=== PATIENT | male | born 1985 | race African-American/Black ===

== ENCOUNTER 2018-01-01 19:41 | Emergency (ER) | payer SELFPAY ==
--- NOTE | 2018-01-01 20:17 | ER Document Report ---
ED Medical Screen (RME) - General Chief Complaint: Laceration Stated Complaint: RIGHT HAND LACERATION Time Seen by Provider: 01/01/18 20:15 Mode of Arrival: Ambulatory Information source: Patient TRAVEL OUTSIDE OF THE [place] 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 Tet- UTD - Related Data Allergies/Adverse Reactions: peaches Allergy (Uncoded 01/01/18 19:42) Past Medical History - Social History Chew tobacco use (# tins/day): No Frequency of alcohol use: Social Drug Abuse: None Renal/ Medical History: Denies: Hx Peritoneal Dialysis - Immunizations Hx Diphtheria, Pertussis, Tetanus Vaccination: No Physical Exam - Vital signs Vitals: Temp Pulse Resp BP Pulse Ox 98.6 F 60 16 122/68 97 01/01/18 20:03 01/01/18 20:03 01/01/18 20:03 01/01/18 20:03 01/01/18 20:03 Course - Vital Signs Vital signs: Temp Pulse Resp BP Pulse Ox 98.6 F 60 16 122/68 97 01/01/18 20:03 01/01/18 20:03 01/01/18 20:03 01/01/18 20:03 01/01/18 20:03
[2018-01-01] MEDS ORDERED: LIDOCAINE 1% INJ-PF (10 MG/ML) 30 ML SDV INJ ONE (22:27)
--- NOTE | 2018-01-01 22:29 | ER Document Report ---
ED Wound - General Chief Complaint: Laceration Stated Complaint: RIGHT HAND LACERATION Time Seen by Provider: 01/01/18 20:15 Mode of Arrival: Ambulatory Notes: Patient is a 32-year-old male comes emergency department for chief complaint of laceration to his right wrist. Patient states that he accidentally locked himself out of the house, states he hit his window with a brick to break it and get an, states that when he hit the window a shard of glass cut him in the wrist. He is right-handed. He denies SI or HI, denies that he was trying to hurt himself. He is up-to-date on tetanus within 5 years. TRAVEL OUTSIDE OF THE [place] IN LAST 30 DAYS: No - Related Data Allergies/Adverse Reactions: peaches Allergy (Uncoded 01/01/18 19:42) Past Medical History - General Information source: Patient - Social History Smoking Status: Current Every Day Smoker Chew tobacco use (# tins/day): No Frequency of alcohol use: Social Drug Abuse: None Lives with: Family Family History: Reviewed & Not Pertinent Patient has suicidal ideation: No Patient has homicidal ideation: No - Medical History Medical History: Negative Renal/ Medical History: Denies: Hx Peritoneal Dialysis Surgical Hx: Negative - Immunizations Hx Diphtheria, Pertussis, Tetanus Vaccination: No Review of Systems - Review of Systems Constitutional: No symptoms reported EENT: No symptoms reported Cardiovascular: No symptoms reported Respiratory: No symptoms reported Gastrointestinal: No symptoms reported Genitourinary: No symptoms reported Male Genitourinary: No symptoms reported Musculoskeletal: See HPI Skin: See HPI Hematologic/Lymphatic: No symptoms reported Neurological/Psychological: No symptoms reported Physical Exam - Vital signs Vitals: Temp Pulse Resp BP Pulse Ox 98.6 F 60 16 122/68 97 01/01/18 20:03 01/01/18 20:03 01/01/18 20:03 01/01/18 20:03 01/01/18 20:03 Interpretation: Normal - General General appearance: Appears well, Alert In distress: None - HEENT Head: Normocephalic, Atraumatic Eyes: Normal Pupils: PERRL - Respiratory Respiratory status: No respiratory distress Chest status: Nontender Breath sounds: Normal Chest palpation: Normal - Cardiovascular Rhythm: Regular Heart sounds: Normal auscultation Murmur: No - Abdominal Inspection: Normal Distension: No distension Bowel sounds: Normal Tenderness: Nontender Organomegaly: No organomegaly - Back Back: Normal, Nontender - Extremities General upper extremity: Other - Linear laceration over the volar aspect of the right forearm, horizontal, into the subcutaneous tissue. No significant bleeding, no evidence of laceration or tendon injury, normal wrist, elbow exam, normal sensation, capillary refill, range of motion of the fingers. General lower extremity: Normal inspection, Nontender, Normal color, Normal ROM , Normal temperature, Normal weight bearing - Neurological Neuro grossly intact: Yes Cognition: Normal Orientation: AAOx4 Miah Coma Scale Eye Opening: Spontaneous Miah Coma Scale Verbal: Oriented [place] Coma Scale Motor: Obeys Commands [place] Coma Scale Total: 15 Speech: Normal Motor strength normal: LUE, RUE, LLE, RLE Sensory: Normal - Psychological Associated symptoms: Normal affect, Normal mood - Skin Skin Temperature: Warm Skin Moisture: Dry Skin Color: Normal Course - Re-evaluation Re-evalutation: Wound explored carefully, no evidence of tendon or nerve injury, no large vessel injury. Patient denying any suicidal or homicidal ideation, I suspect because patient is right-handed he is giving me any accurate history. Does appear to be cut with glass that does not appear to be linear. More likely accidental injury. Wound cleaned, repaired, discussed wound care, follow-up, return precautions. Patient states understanding and agreement. - Vital Signs Vital signs: Temp Pulse Resp BP Pulse Ox 97.7 F 58 L 16 121/63 96 01/02/18 00:47 01/02/18 00:47 01/01/18 20:03 01/02/18 00:47 01/02/18 00:47 Procedures - Laceration/Wound Repair Right wrist Wound length (cm): 3 Wound's Depth, Shape: Irregular Laceration pre-procedure: Sterile PPE donned, Sterile drapes applied, Shur- Clens applied - Surgical cleanser Anesthetic type: 1% Lidocaine Volume Anesthetic (mLs): 3 Wound explored: Clean, No foreign body removed Irrigated w/ Saline (mLs): 40 Wound Repaired With: Sutures Suture Size/Type: 4:0, Nylon Number of Sutures: 5 Layer Closure?: Yes Deep Layer Suture Size/Type: 5:0, Other - Vicryl Number Deep Layer Sutures: 2 Post-procedure wound care: Sterile dressing applied Post-procedure NV exam normal: Yes Complications: No Discharge - Discharge Clinical Impression: Laceration of wrist Qualifiers: Encounter type: initial encounter Laterality: right Qualified Code(s): S61.511A - Laceration without foreign body of right wrist, initial encounter Condition: Stable Disposition: HOME, SELF-CARE Additional Instructions: The sutures on top need to be removed in 7-10 days at a medical facility. The sutures underneath will dissolve on their own. Keep clean, clean with soap and water, dab dry, avoid soaking, you can apply thin film of antibiotic ointment. Return immediately for any concerning symptoms including developing redness, discolored drainage, fever, severe swelling, or any other concerning symptoms. Forms: Return to Work
[2018-01-02 00:48] VITALS: BP 121/63
== END 2018-01-02 01:04 | disposition home or self-care (01) ==
LOC: ER 19:41
PROC: 0HQDXZZ Repair Right Lower Arm Skin, External Approach (ICD-10-PCS; principal; 2018-01-01)
DX: S61.511A Laceration without foreign body of right wrist, initial encounter (principal); W25.XXXA Contact with sharp glass, initial encounter; F17.200 Nicotine dependence, unspecified, uncomplicated
CPT/HCPCS: 99283

== ENCOUNTER 2018-01-07 09:25 | Emergency (ER) | payer SELFPAY ==
--- NOTE | 2018-01-07 10:30 | ER Document Report ---
HPI - HPI Patient complains to provider of: Suture removal Onset: Other - 6 days Pain Level: Denies Context: Patient states that he is here for suture removal to laceration to the right wrist. Patient does state that he did have a suture that popped. Patient with 4 intact sutures. Patient does report serous drainage from the laceration. Exacerbated by: Denies Relieved by: Denies Similar symptoms previously: No Recently seen / treated by doctor: No - ROS ROS below otherwise negative: Yes Systems Reviewed and Negative: Yes All other systems reviewed and negative - CONSTITUTIONAL Constitutional: DENIES: Fever, Chills - REPRODUCTIVE Reproductive: DENIES: : - DERM Skin Problems: Laceration Past Medical History - General Information source: Patient - Social History Smoking Status: Current Every Day Smoker Smoking Education Provided: Yes Frequency of alcohol use: Social Drug Abuse: None Occupation: [employer] Lives with: Family Family History: Reviewed & Not Pertinent Patient has suicidal ideation: No Patient has homicidal ideation: No - Medical History Medical History: Negative Renal/ Medical History: Denies: Hx Peritoneal Dialysis Surgical Hx: Negative - Immunizations Hx Diphtheria, Pertussis, Tetanus Vaccination: No Vertical Provider Document - CONSTITUTIONAL Agree With Documented VS: Yes Exam Limitations: No Limitations General Appearance: WD/WN, No Apparent Distress - INFECTION CONTROL TRAVEL OUTSIDE OF THE [place] IN LAST 30 DAYS: No - HEENT HEENT: Atraumatic, Normocephalic - NECK Neck: Normal Inspection - RESPIRATORY Respiratory: No Respiratory Distress O2 Sat by Pulse Oximetry: 97 - CARDIOVASCULAR Pulses: Normal: Radial - MUSCULOSKELETAL/EXTREMETIES Musculoskeletal/Extremeties: MAEW - NEURO Level of Consciousness: Awake, Alert, Appropriate Motor/Sensory: No Motor Deficit - DERM Integumentary: Warm, Dry, Laceration - Patient with laceration to the volar aspect of right wrist. Patient with 4 intact sutures with one central suture that had popped. Patient does have very minimal serous drainage from laceration. Course - Re-evaluation Re-evalutation: 01/07/18 Patient initially was advised to return in 7-10 days for suture removal. Patient presents 6 days after sutures were placed. Given the fact that the suture has popped and the wound has already started to do his,Patient was advised to return in 6 additional days to have the sutures removed or to return sooner for any worsening symptoms. Patient will be placed in a splint to prevent extension and hyperextension of the wrist that will put strain on the laceration. Patient states that he has been continuing to work despite his sutured laceration. - Vital Signs Vital signs: Temp Pulse Resp BP Pulse Ox 98.5 F 88 16 121/98 H 97 01/07/18 09:31 01/07/18 09:31 01/07/18 09:31 01/07/18 09:31 01/07/18 09:31 Procedures - Immobilization Right Wrist Pre-Proc Neuro Vasc Exam: Normal Immobilizer type: Cock-up Performed by: PCT Post-Proc Neuro Vasc Exam: Normal Alignment checked and good: Yes Discharge - Discharge Clinical Impression: Encounter for wound re-check Condition: Stable Disposition: HOME, SELF-CARE Instructions: Laceration Care ([facility]), Temporary Splint ([facility]) Additional Instructions: Return immediately for any new or worsening symptoms Followup with your primary care provider, call tomorrow to make a followup appointment Return in 6 days for suture removal Wear splint to help prevent hyperextension of the wrist that can lead to popping of sutures Keep wound covered as it continues to heal Forms: Smoking Cessation Education, Return to Work Referrals: [facility] [Provider Group] - Follow up as needed
[2018-01-07 10:43] VITALS: BP 120/90
== END 2018-01-07 10:46 | disposition home or self-care (01) ==
LOC: ER 09:25
DX: Z48.02 Encounter for removal of sutures (principal); S61.511D Laceration without foreign body of right wrist, subsequent encounter; X58.XXXD Exposure to other specified factors, subsequent encounter; F17.200 Nicotine dependence, unspecified, uncomplicated
CPT/HCPCS: 99281; L3908

== ENCOUNTER 2018-01-19 13:51 | Emergency (ER) | payer SELFPAY ==
[2018-01-19 14:03] VITALS: BP 127/69
--- NOTE | 2018-01-19 14:25 | ER Document Report ---
HPI - HPI Pain Level: Denies Notes: Patient is a 32-year-old male who presents to the ED for suture removal of the remaining 5 sutures to his right anterior wrist status post placement about 2 weeks ago. Patient states that 1 of the sutures did break on its own which he pulled out previously. Patient states that he has not had any issues with the wrist. Patient states that he is feeling well. No other concerns or complaints at this time. He has not noted any red streaks, abscess, purulence, redness, or pain. Denies any headache, fever, chest pain, palpitations, syncope , cough, shortness of breath, wheeze, dyspnea, abdominal pain, nausea/vomiting/ diarrhea, urinary retention, dysuria, hematuria, numbness/tingling, muscle paralysis/weakness, or rash. - ROS Systems Reviewed and Negative: Yes All other systems reviewed and negative - CONSTITUTIONAL Constitutional: DENIES: Fever, Chills - REPRODUCTIVE Reproductive: DENIES: : Past Medical History - Social History Smoking Status: Current Every Day Smoker Chew tobacco use (# tins/day): No Frequency of alcohol use: Occasional Drug Abuse: None Family History: Reviewed & Not Pertinent Patient has suicidal ideation: No Patient has homicidal ideation: No Renal/ Medical History: Denies: Hx Peritoneal Dialysis - Immunizations Hx Diphtheria, Pertussis, Tetanus Vaccination: No Vertical Provider Document - CONSTITUTIONAL Agree With Documented VS: Yes Notes: PHYSICAL EXAMINATION: GENERAL: Well-appearing, well-nourished and in no acute distress. LUNGS: Breath sounds clear to auscultation bilaterally and equal. No wheezes rales or rhonchi. HEART: Regular rate and rhythm without murmurs, rubs, gallops. Musculoskeletal: FROM to passive/active. Strength 5+/5. Extremities: No cyanosis, clubbing, or edema b/l. Peripheral pulses 2+. Capillary refill less than 3 seconds. NEUROLOGICAL: Cranial nerves grossly intact. Normal speech, normal gait. Normal sensory, motor exams PSYCH: Normal mood, normal affect. SKIN: healing, almost healed, laceration to the rt anterior wrist with [address] No wound dehiscence, erythema, induration, abscess, streaks, or purulence. Non-tender. N/V intact ditsal. - INFECTION CONTROL TRAVEL OUTSIDE OF THE [place] IN LAST 30 DAYS: No - RESPIRATORY O2 Sat by Pulse Oximetry: 97 Course - Re-evaluation Re-evalutation: 01/19/18 14:23 Patient is an afebrile, well-hydrated, 32-year-old male who presents to the ED for suture removal. Vitals are stable. PE is otherwise unremarkable. Low suspicion for any infection, wound dehiscence, osteomyelitis, neurovascular compromise. Sutures removed successfully without any complications. Wound instruction has previously reviewed. Recheck with your PCM in 3-5 days. Return to the ED with any worsening/concerning symptoms otherwise as reviewed discharge. Patient is in agreement. - Vital Signs Vital signs: Temp Pulse Resp BP Pulse Ox 98.4 F 88 14 127/69 H 97 01/19/18 13:59 01/19/18 13:59 01/19/18 13:59 01/19/18 13:59 01/19/18 13:59 Discharge - Discharge Clinical Impression: Visit for suture removal Condition: Stable Disposition: HOME, SELF-CARE Additional Instructions: Keep the skin clean Wash with soap and water Tylenol/ibuprofen if needed Triple antibiotic ointment with any redness or start of infection (redness, warmth, purulence, fever, etc) Take medication as directed Monitor for any worsening symptoms Recheck with your PCM in 3-5 days Return to the ED with any worsening symptoms and/or development of fever, headache, chest pain, palpitations, syncope, shortness of breath, trouble breathing, abdominal pain, n/v/d, abscess, purulent discharge, red streaks, worsening swelling, or other worsening symptoms that are concerning to you. Forms: Smoking Cessation Education, Elevated Blood Pressure Referrals: [facility] [Provider Group] - Follow up as needed [facility] [Provider Group] - Follow up as needed
== END 2018-01-19 14:31 | disposition home or self-care (01) ==
LOC: ER 13:51
DX: Z48.02 Encounter for removal of sutures (principal); F17.200 Nicotine dependence, unspecified, uncomplicated

== ENCOUNTER 2018-05-28 02:42 | Emergency (ER) | payer SELFPAY ==
[2018-05-28 03:00] VITALS: BP 125/74
== END 2018-05-28 03:00 | disposition left against medical advice (07) ==
LOC: ER 02:42
DX: F10.10 Alcohol abuse, uncomplicated (principal); Z53.21 Procedure and treatment not carried out due to patient leaving prior to being seen by health care provider

== ENCOUNTER 2018-06-07 21:41 | Emergency (ER) | payer SELFPAY ==
[2018-06-07] MEDS ORDERED: KETOROLAC TROMETHAMINE INJ/PF 30 MG/1 ML SDV IM ONE (23:48)
[2018-06-07] MEDS ORDERED: DEXAMETHASONE SOD PHOS INJ 10 MG/1 ML VIAL IM ONE (23:48)
--- NOTE | 2018-06-07 23:53 | ER Document Report ---
HPI - HPI Pain Level: 4 Notes: Patient is a 32-year-old male no significant past medical history who presents to the ED complaining of left trapezius muscle tightness and spasming that will occasionally radiate a tingling sensation down his left arm and into his hand. Patient states that his symptoms have been ongoing for 1 month and have been intermittent with activity only. Patient states that arm flexion and abduction activities make his symptoms worse. Patient does not recall any injury. He is eating and drinking without any difficulties. He is urinating normally and having normal bowel movements. Denies any drug allergies. Denies any headache , fever, head injury, neck pain, changes in vision/speech/mentation/hearing, URI , sore throat, chest pain, palpitations, syncope, cough, shortness of breath, wheeze, dyspnea, abdominal pain, nausea/vomiting/diarrhea, urinary retention, dysuria, hematuria, numbness, muscle paralysis/weakness, or rash. - ROS Systems Reviewed and Negative: Yes All other systems reviewed and negative - CONSTITUTIONAL Constitutional: DENIES: Fever, Chills - EENT EENT: DENIES: Sore Throat, Ear Pain, Eye problems - NEURO Neurology: REPORTS: Weakness - Slight to L arm. DENIES: Headache, Vision blurred, Dizzinesss / Vertigo - CARDIOVASCULAR Cardiovascular: DENIES: Chest pain - RESPIRATORY Respiratory: DENIES: Trouble Breathing, Coughing - GASTROINTESTINAL Gastrointestinal: DENIES: Abdominal Pain, Black / Bloody Stools - URINARY Urinary: DENIES: Dysuria, Urgency, Frequency - REPRODUCTIVE Reproductive: DENIES: : - MUSCULOSKELETAL Musculoskeletal: REPORTS: Extremity pain - L arm Past Medical History - Social History Smoking Status: Current Every Day Smoker Chew tobacco use (# tins/day): No Frequency of alcohol use: Social Drug Abuse: None Family History: Reviewed & Not Pertinent Patient has suicidal ideation: No Patient has homicidal ideation: No Renal/ Medical History: Denies: Hx Peritoneal Dialysis - Immunizations Hx Diphtheria, Pertussis, Tetanus Vaccination: No Vertical Provider Document - CONSTITUTIONAL Agree With Documented VS: Yes Notes: PHYSICAL EXAMINATION: GENERAL: Well-appearing, well-nourished and in no acute distress. Neck: FROM. Strength 5+/5. No tenderness to midline or paraspinal. Spurling negative. LUNGS: Breath sounds clear to auscultation bilaterally and equal. No wheezes rales or rhonchi. HEART: Regular rate and rhythm without murmurs, rubs, gallops. ABDOMEN: Soft, nontender, nondistended abdomen. No guarding, no rebound. No masses appreciated. Normal bowel sounds present. No CVA tenderness bilaterally. No pulsatile mass Musculoskeletal: Lt UE: FROM to passive/active. Strength 5+/5. No deficits noted. No bony tenderness of extremities. + tinel/phalen to the left wrist. Back: FROM to passive/active. Strength 5+/5. No vertebral point tenderness, stepoffs, or deformities. No other bony tenderness, erythema, swelling, or ecchymosis. SLR negative b/l. + mild tenderness to the Left trapezius mm with mild spasming and trigger point, correlates with pain described. No SI jt tenderness. No foot drop Extremities: No cyanosis, clubbing, or edema b/l. Peripheral pulses 2+. Capillary refill less than 2 seconds. NEUROLOGICAL: Normal speech, normal gait. Normal sensory, motor exams. Reflexes 2+ b/l. PSYCH: Normal mood, normal affect. SKIN: Warm, Dry, normal turgor, no rashes or lesions noted. - INFECTION CONTROL TRAVEL OUTSIDE OF THE [place] IN LAST 30 DAYS: No Course - Re-evaluation Re-evalutation: 06/07/18 23:52 Patient is an afebrile, well-hydrated, 32-year-old male who presents to the ED with left trapezius muscle spasming and probable mild carpal tunnel syndrome to the left wrist. Vitals are acceptable without any significant tachycardia, tachypnea, or hypoxia. PE is otherwise unremarkable for any neurovascular compromise, obvious tendon/ligament rupture, obvious fracture/dislocation, septic joint. Patient symptoms were reproducible during exam primarily with palpation to the trapezius muscle. No labs or imaging warranted at this time based on H&P. Toradol and Decadron given IM today. Patient is nontoxic- appearing. I will send him home with a prescription for baclofen and naproxen. Conservative measures otherwise for symptoms. Recheck with your PCM in 3-5 days. Consider consult orthopedics. Return to the ED with any worsening/ concerning symptoms otherwise as reviewed in discharge. Patient is in agreement. - Vital Signs Vital signs: Temp Pulse Resp BP Pulse Ox 98.6 F 60 18 145/68 H 98 06/07/18 22:34 07/17/18 22:34 06/07/18 22:34 06/07/18 22:34 06/07/18 22:34 Discharge - Discharge Clinical Impression: Trapezius muscle spasm, Carpal tunnel syndrome, left Condition: Stable Disposition: HOME, SELF-CARE Instructions: Carpal Tunnel Syndrome ([facility]), Muscle Relaxers ([facility]) Additional Instructions: Rest, Ice, Compression, Elevation Tylenol/ibuprofen as needed Light stretches daily Strength exercises as able Moist heat and massage may help F/u with your PCP in 3-5 days for a recheck Consider consult(s) with Orthopedics/physical therapy for ongoing/worsening symptoms Return to the ED with any worsening symptoms and/or development of fever, headache, chest pain, palpitations, syncope, shortness of breath, trouble breathing, abdominal pain, n/v/d, muscle weakness/paralysis, numbness/tingling, swelling, redness, or other worsening symptoms that are concerning to you. Prescriptions: Baclofen [Baclofen 10 mg Tablet] 5 - 10 mg PO BID PRN #10 tablet PRN Reason: Naproxen 500 mg PO BID PRN #30 tablet PRN Reason: Forms: Elevated Blood Pressure Referrals: [facility] [Provider Group] - Follow up as needed
[2018-06-08 00:37] VITALS: BP 137/69
== END 2018-06-08 00:37 | disposition home or self-care (01) ==
LOC: ER 21:41
DX: M62.838 Other muscle spasm (principal); G56.02 Carpal tunnel syndrome, left upper limb; F17.200 Nicotine dependence, unspecified, uncomplicated
CPT/HCPCS: 99283; 96372; J1885; J1100

== ENCOUNTER 2018-07-27 17:01 | Emergency (ER) | payer SELFPAY ==
[2018-07-27] MEDS ORDERED: ONDANSETRON 4 MG TAB.RAPDIS PO ONE (18:11)
[2018-07-27] MEDS ORDERED: DICYCLOMINE HCL 20 MG TABLET PO ONE (18:11)
--- NOTE | 2018-07-27 18:13 | ER Document Report ---
ED General - General Chief Complaint: Diarrhea Stated Complaint: DIARRHEA Time Seen by Provider: 07/27/18 17:58 TRAVEL OUTSIDE OF THE [place] IN LAST 30 DAYS: No - HPI Patient complains to provider of: Diarrhea Notes: Patient coming in for evaluation diarrhea. Patient states diarrhea throughout the last 2 days. Patient denies any fevers chills nausea vomiting. Patient denies any odd foods or uncooked foods. Patient denies any sick contacts denies any recent antibiotics travel denies any new pets at home. Patient looks well-hydrated upon my evaluation states having slight cramping whenever he is having the diarrhea. No other past medical history - Related Data Allergies/Adverse Reactions: peaches Allergy (Uncoded 07/27/18 18:00) Past Medical History - Social History Smoking Status: Current Every Day Smoker Chew tobacco use (# tins/day): No Frequency of alcohol use: None Drug Abuse: None Family History: Reviewed & Not Pertinent Patient has suicidal ideation: No Patient has homicidal ideation: No Renal/ Medical History: Denies: Hx Peritoneal Dialysis - Immunizations Hx Diphtheria, Pertussis, Tetanus Vaccination: No Review of Systems - Review of Systems Constitutional: No symptoms reported EENT: No symptoms reported Cardiovascular: No symptoms reported Respiratory: No symptoms reported Gastrointestinal: Abdominal pain, Diarrhea Genitourinary: No symptoms reported Male Genitourinary: No symptoms reported Musculoskeletal: No symptoms reported Skin: No symptoms reported Hematologic/Lymphatic: No symptoms reported Neurological/Psychological: No symptoms reported -: Yes All other systems reviewed and negative Physical Exam - Vital signs Vitals: Temp Pulse Resp BP Pulse Ox 97.7 F 83 14 131/71 H 99 07/27/18 17:09 07/27/18 17:09 07/27/18 17:09 07/27/18 17:09 07/27/18 17:09 Interpretation: Normal - General General appearance: Appears well, Alert - HEENT Head: Normocephalic, Atraumatic Eyes: Normal Pupils: PERRL - Respiratory Respiratory status: No respiratory distress Chest status: Nontender Breath sounds: Normal Chest palpation: Normal - Cardiovascular Rhythm: Regular Heart sounds: Normal auscultation Murmur: No - Abdominal Inspection: Normal Distension: No distension Bowel sounds: Normal Tenderness: Nontender Organomegaly: No organomegaly - Back Back: Normal, Nontender - Extremities General upper extremity: Normal inspection, Nontender, Normal color, Normal ROM , Normal temperature General lower extremity: Normal inspection, Nontender, Normal color, Normal ROM , Normal temperature, Normal weight bearing. No: Bronwyn's sign - Neurological Neuro grossly intact: Yes Cognition: Normal Orientation: AAOx4 Miah Coma Scale Eye Opening: Spontaneous Miah Coma Scale Verbal: Oriented [place] Coma Scale Motor: Obeys Commands [place] Coma Scale Total: 15 Speech: Normal Motor strength normal: LUE, RUE, LLE, RLE Sensory: Normal - Psychological Associated symptoms: Normal affect, Normal mood - Skin Skin Temperature: Warm Skin Moisture: Dry Skin Color: Normal Course - Re-evaluation Re-evalutation: 07/27/18 21:25 The patient presents with diarrhea without signs of peritonitis or other life- threatening or serious etiology. The patient appears stable for discharge and has been instructed to return immediately if the symptoms worsen in any way, or in 8-12hr if not improved for re-evaluation. The patient has been instructed to return if the symptoms worsen or change in any way. - Vital Signs Vital signs: Temp Pulse Resp BP Pulse Ox 98.1 F 84 16 128/68 H 100 07/27/18 18:41 07/27/18 18:41 07/27/18 18:41 07/27/18 18:41 07/27/18 18:41 Discharge - Discharge Clinical Impression: Diarrhea Qualifiers: Diarrhea type: unspecified type Qualified Code(s): R19.7 - Diarrhea, unspecified Condition: Good Disposition: HOME, SELF-CARE Instructions: Diarrhea, Nonspecific ([facility]) Additional Instructions: I recommend increasing her fiber and increasing her fiber intake as natural ways to help stop your diarrhea. Take Bentyl for abdominal cramps he may also take Tylenol and Motrin for abdominal cramps Zofran for any nausea Avoid fatty greasy foods Drink plenty of fluids to stay well-hydrated recommend Gatorade Powerade along with water Prescriptions: Dicyclomine HCl [Bentyl 20 mg Tablet] 20 mg PO QID #30 tablet Ondansetron [Zofran Odt] 4 mg PO Q6 PRN #30 tab.rapdis PRN Reason: For Nausea/Vomiting Forms: Return to Work
[2018-07-27 18:42] VITALS: BP 128/68
== END 2018-07-27 18:41 | disposition home or self-care (01) ==
LOC: ER 17:01
DX: R19.7 Diarrhea, unspecified (principal); R10.9 Unspecified abdominal pain; F17.200 Nicotine dependence, unspecified, uncomplicated; Z91.018 Allergy to other foods
CPT/HCPCS: 99283; J3490; S0119

== ENCOUNTER 2018-12-18 19:42 | Emergency (ER) | payer SELFPAY ==
[2018-12-18] MEDS ORDERED: MORPHINE SULFATE 10 MG/ML INJ IV ONE (23:00)
[2018-12-18] MEDS ORDERED: ONDANSETRON HCL INJ/PF 4 MG/2 ML SDV IV ONE (23:00)
[2018-12-18] MEDS ORDERED: NORMAL SALINE 1000 ML 1,000 ML IV ONE (23:00)
--- NOTE | 2018-12-18 23:10 | ER Document Report ---
ED Headache - General Chief Complaint: Headache Stated Complaint: HEADACHE/ABDOMINAL PAIN Time Seen by Provider: 12/18/18 22:53 Notes: Patient is a 32-year-old male who presents with complaint of a headache and abdominal pain. He said abdominal pain started first. He says is been ongoing for a few weeks. Is most in the right upper quadrant worse whenever he eats. Some nausea but no vomiting. No diarrhea. He says his kids recently had a vomiting diarrheal illness and he thought maybe is just getting what they had. Over the last couple days he is also had a headache. Headache is intermittent on the right side of his head he has some associated blurred vision of the left eye. No new focal weakness or numbness in his extremities. He says that for the last 6 months he will occasionally have some numbness and tingling in his left arm but no weakness. He says he currently does not have that now. No recent fevers. No recent trauma or injuries. No other complaints at this time. He does drink alcohol on a daily basis. He says he drinks a few beers a day. He does smoke every day. No drugs. TRAVEL OUTSIDE OF THE [place] IN LAST 30 DAYS: No - Related Data Allergies/Adverse Reactions: peaches Allergy (Uncoded 07/27/18 18:00) Past Medical History - Social History Smoking Status: Current Every Day Smoker Chew tobacco use (# tins/day): No Frequency of alcohol use: few beers everyday Drug Abuse: None Family History: Reviewed & Not Pertinent Patient has suicidal ideation: No Patient has homicidal ideation: No Renal/ Medical History: Denies: Hx Peritoneal Dialysis - Immunizations Hx Diphtheria, Pertussis, Tetanus Vaccination: No Review of Systems - Review of Systems Notes: My Normal Review Basic REVIEW OF SYSTEMS: CONSTITUTIONAL : Denies fever, chills, or sweats. Denies recent illness. EENT: Some blurred vision in left eye. CARDIOVASCULAR: Denies chest pain. RESPIRATORY: Denies cough, cold, or chest congestion. Denies shortness of breath, difficulty breathing, or wheezing. GASTROINTESTINAL: Right upper quadrant abdominal pain. Some nausea. GENITOURINARY: Denies difficulty urinating, painful urination, burning, frequency, or blood in urine. MUSCULOSKELETAL: Denies neck or back pain or joint pain or swelling. SKIN: Denies rash or skin lesions. NEUROLOGICAL: Denies altered mental status or loss of consciousness. Intermittent headache. Denies weakness or paralysis or loss of use of either side. Denies problems with gait or speech. Denies sensory or motor loss. ALL OTHER SYSTEMS REVIEWED AND NEGATIVE. Physical Exam - Vital signs Vitals: Temp Pulse Resp BP Pulse Ox 98.9 F 70 16 128/57 H 96 12/18/18 20:30 12/18/18 20:30 12/18/18 20:30 12/18/18 20:30 12/18/18 20:30 - Notes Notes: General Appearance: Well nourished, alert, cooperative, no acute distress, no obvious discomfort. Well-appearing. Vitals: reviewed, See vital signs table. Head: no swelling or tenderness to the head Eyes: PERRL, EOMI, Conjuctiva clear Mouth: No decreasd moisture Lungs: No wheezing, No rales, No rhonci, No accessory muscle use, good air exchange bilaterally. Heart: Normal rate, Regular rythm, No murmur, no rub Abdomen: Normal BS, soft, No rigidity, moderate right upper quadrant double tenderness to palpation. Mild right lower quadrant tenderness to palpation. Remainder of abdomen is nontender., No guarding, no rebound, no abdominal masses, no organomegaly Extremities: strength 5/5 in all extremities, good pulses in all extremities, no swelling or tenderness in the extremities, no edema. Skin: warm, dry, appropriate color, no rash Neuro: speech clear, oriented x 3, normal affect, responds appropriately to questions. Cranial nerves II through XII are intact. Distal sensation intact. Patient moves all extremities without difficulty. Normal Romberg. Course - Re-evaluation Re-evalutation: 12/19/18 01:34 Patient's headache is completely resolved. Blurred vision resolved when the headache went away. I did obtain report of his gallbladder being that some pain was more to the right side epigastric region. Gallbladder workup is negative. I suspect he most likely is having gastritis with reflux. I will place him on Carafate and Pepcid. I strongly encouraged him return to ER if he has vomiting, blood in stool, any blood in emesis, worsening pain, recurrent headache, recurrent blurred vision, or if he feels unwell. I do not suspect subarachnoid hemorrhage as the headache was very gradual in onset and not maximal in onset. He has no focal neurologic deficits except for the slight blurred vision of the eye which is since resolved. Dictation of this chart was performed using voice recognition software; therefore, there may be some unintended grammatical errors. - Vital Signs Vital signs: Temp Pulse Resp BP Pulse Ox 98.9 F 70 16 128/57 H 96 12/18/18 20:30 12/18/18 20:30 12/18/18 20:30 12/18/18 20:30 12/18/18 20:30 - Laboratory Result Diagrams: 12/19/18 00:44 12/19/18 00:44 Laboratory results interpreted by me: 12/19/18 12/19/18 12/19/18 00:44 00:44 00:44 Lymphocytes % 45.5 H Carbon Dioxide 32 H Ur Leukocyte Esterase TRACE H Discharge - Discharge Clinical Impression: Headache Qualifiers: Headache type: unspecified Headache chronicity pattern: episodic headache Intractability: not intractable Qualified Code(s): R51 - Headache Abdominal pain Qualifiers: Abdominal location: upper abdomen, unspecified Qualified Code(s): R10.10 - Upper abdominal pain, unspecified Condition: Good Disposition: HOME, SELF-CARE Additional Instructions: Gastritis You have an inflammation of the stomach called gastritis. This commonly causes upper abdominal pain, nausea, and vomiting. In severe cases, bleeding of the stomach lining can occur. Gastritis can be caused by bacteria or viruses, alcohol, or stomach-irritating drugs. Begin with sips of clear liquids. Take increasing amounts of fluid over the first 24 hours. Then start small amounts of bland foods (such as dry toast, applesauce, mashed potato). Gradually resume your usual diet. You should take antacids every two hours until the pain has subsided. Acid-suppressing drugs may be prescribed as well. Avoid aspirin, caffeine, tobacco, and alcohol. If the abdominal pain worsens, or there is evidence of major bleeding in the stomach (such as black, tarry stool, bloody or black vomit, or lightheadedness), you should return immediately. Please take the medications as prescribed. Please avoid fried foods, spicy foods, and acidic foods. Please eat a very bland diet for the next week. Workup of her gallbladder was negative today. You should still have a low threshold to return to ER if you have worsening pain, vomiting, or fevers. CT scan of the head was normal. Please return to the ER if you have recurrent headaches or recurrent blurred vision or have any further concerns. Please follow-up with a doctor in 3-5 days for reevaluation. Prescriptions: Famotidine [Pepcid 40 mg Tablet] 40 mg PO DAILY #30 tablet Sucralfate [Carafate Susp 1 Gm/10 Ml Udcup] 1 gm PO ACHS 10 Days udc Forms: Special Work Note
--- NOTE | 2018-12-18 23:47 | RADIOLOGY REPORT (SQ) ---
EXAM DESCRIPTION: CT HEAD WITHOUT IV CONTRAST COMPLETED DATE/TME: 12/18/2018 22:59 CLINICAL HISTORY: 32 years, Male, headache This exam was performed according to our departmental dose-optimization program which includes automated exposure control, adjustment of the mA and/or kVp according to patient size and/or use of iterative reconstruction technique where applicable. FINDINGS: No acute intracranial hemorrhage, mass effect or midline shift. No extra-axial fluid collections. Ventricles and subarachnoid spaces are preserved. Dunham-white matter differentiation is preserved. Visualized paranasal sinuses and the mastoid air cells are clear. The skull is intact. IMPRESSION: No acute intracranial hemorrhage.
--- NOTE | 2018-12-19 00:42 | RADIOLOGY REPORT (SQ) ---
EXAM DESCRIPTION: US ABDOMEN DOPPLER LIMITED COMPLETED DATE/TME: 12/18/2018 22:59 CLINICAL HISTORY: 32 years, Male, RUQ abdominal pain COMPARISON: CT 09/29/2017 TECHNIQUE: Limited right upper quadrant ultrasound LIMITATIONS: None. FINDINGS: The liver is homogenous in echotexture without focal lesion. No gallstones or gallbladder wall thickening. CBD measures 3.3 mm. The visualized portions of the pancreas are unremarkable. Visualized abdominal aorta, right kidney are unremarkable. No ascites. IMPRESSION: Unremarkable exam copyright 2010 [employer]- All Rights Reserved
[2018-12-19 00:59] LABS: ABSOLUTE EOSINOPHILS # (AUTO) 0.1 10^3/uL (0.0-0.6); ABSOLUTE LYMPHOCYTES (AUTO) 1.9 10^3/uL (0.5-4.7); ABSOLUTE MONOCYTES (AUTO) 0.3 10^3/uL (0.1-1.4); ABSOLUTE NEUT (AUTO) 1.8 10^3/uL (1.7-8.2); BASOPHILS % (AUTO) 1.1 % (0-2); EOSINOPHILS % (AUTO) 2.9 % (0-6); HEMATOCRIT 43.4 % (37.9-51.0); LYMPHOCYTES % (AUTO) 45.5 % (13-45); MEAN CORPUSCULAR HEMOGLOBIN 30.7 pg (27.0-33.4); MEAN CORPUSCULAR HGB CONC 34.4 g/dL (32.0-36.0); MEAN CORPUSCULAR VOLUME 89 fl (80-97); MONOCYTES % (AUTO) 8.1 % (3-13); PLATELET COUNT 185 10^3/uL (150-450); RED BLOOD COUNT 4.86 10^6/uL (4.35-5.55); RED CELL DISTRIBUTION WIDTH 13.7 % (11.5-14.0); SEGMENTED NEUTROPHILS % (AUTO) 42.4 % (42-78); TOTAL CELLS COUNTED % (AUTO) 100 %; WHITE BLOOD COUNT 4.2 10^3/uL (4.0-10.5)
[2018-12-19 01:04] LABS: APPEARANCE,URINE CLEAR; BILIRUBIN,URINE NEGATIVE (NEGATIVE); COLOR,URINE YELLOW; GLUCOSE, URINE NEGATIVE (NEGATIVE); KETONES,URINE NEGATIVE (NEGATIVE); LEUKOCYTE ESTERASE,URINE TRACE (NEGATIVE); NITRITE,URINE NEGATIVE (NEGATIVE); PROTEIN,URINE NEGATIVE (NEGATIVE); URINE SPECIFIC GRAVITY 1.014; UROBILINOGEN,URINE NEGATIVE mg/dL (<2.0)
[2018-12-19 01:20] LABS: ALANINE AMINOTRANSFERASE 24 U/L (21-72); ALBUMIN 4.8 g/dL (3.5-5.0); ALKALINE PHOSPHATASE 50 U/L (38-126); ANION GAP 5 (5-19); ASPARTATE AMINO TRANSFERASE 29 U/L (17-59); BILIRUBIN,DIRECT 0.2 mg/dL (0.0-0.4); BILIRUBIN,TOTAL 0.5 mg/dL (0.2-1.3); BLOOD UREA NITROGEN 20 mg/dL (7-20); CALCIUM 9.7 mg/dL (8.4-10.2); CARBON DIOXIDE 32 mmol/L (22-30); CHLORIDE 101 mmol/L (98-107); GLUCOSE 98 mg/dL (75-110); LIPASE 114.5 U/L (23-300); POTASSIUM 4.4 mmol/L (3.6-5.0); SODIUM 138.4 mmol/L (137-145); TOTAL PROTEIN 7.9 g/dL (6.3-8.2)
[2018-12-19] MEDS ORDERED: SUCRALFATE SUSP 1 GM/10 ML UDCUP PO ONE (01:34)
[2018-12-19] MEDS ORDERED: FAMOTIDINE 20 MG TABLET PO ONE (01:34)
[2018-12-19 02:07] VITALS: BP 121/53
== END 2018-12-19 02:13 | disposition home or self-care (01) ==
LOC: ER 19:42
DX: R51 Headache (principal); R10.10 Upper abdominal pain, unspecified; H53.8 Other visual disturbances; F17.200 Nicotine dependence, unspecified, uncomplicated
CPT/HCPCS: 99284; 96361; 96374; 96375; 36415; 83690; 85025; 80053; 81001; 76705; 93976; 70450; J2270; J2405; J7030

== ENCOUNTER 2020-02-07 14:08 | Emergency (ER) | payer SELFPAY ==
[2020-02-07 14:13] VITALS: BP 145/72
--- NOTE | 2020-02-07 14:15 | ER Document Report ---
ED Medical Screen (RME) - General Chief Complaint: Vomiting Stated Complaint: VOMITING Time Seen by Provider: 02/07/20 14:12 Mode of Arrival: Ambulatory Information source: Patient Notes: 34-year-old male presented to ED for complaint of nausea and vomiting. He states he is vomited about 5 times since last night when it started. He is alert oriented respirations regular nonlabored speaking in full sentences. States he is felt hot but he has not had a fever. Patient denies any cough congestion any other symptoms. He states he has not been around anybody that has the coronavirus. He has not traveled out of the area. I have greeted and performed a rapid initial assessment of this patient. A comprehensive ED assessment and evaluation of the patient, analysis of test results and completion of medical decision making process will be conducted by an additional ED providers. TRAVEL OUTSIDE OF THE [place] IN LAST 30 DAYS: No - Related Data Allergies/Adverse Reactions: peaches Allergy (Uncoded 02/07/20 14:12) Past Medical History Renal/ Medical History: Denies: Hx Peritoneal Dialysis - Immunizations Hx Diphtheria, Pertussis, Tetanus Vaccination: No
[2020-02-07] MEDS ORDERED: ONDANSETRON 4 MG TAB.RAPDIS PO ONE (14:16)
== END 2020-02-07 15:02 | disposition left against medical advice (07) ==
LOC: ER 14:08
DX: R11.2 Nausea with vomiting, unspecified (principal); Z91.018 Allergy to other foods; Z53.20 Procedure and treatment not carried out because of patient's decision for unspecified reasons
CPT/HCPCS: 99281; S0119

== ENCOUNTER 2020-06-13 17:59 | Emergency (ER) | payer SELFPAY ==
[2020-06-13 18:06] VITALS: BP 129/75
[2020-06-13] MEDS ORDERED: CLINDAMYCIN 900 MG/D5W RTU 900 MG/50 ML RTUPB IV ONE (18:45)
--- NOTE | 2020-06-13 18:49 | ER Document Report ---
ED Medical Screen (RME) - General Chief Complaint: Leg Pain Stated Complaint: LEG PAIN Time Seen by Provider: 06/13/20 18:40 Information source: Patient, Relative Notes: Patient is a 34-year-old male comes emergency room with a 3 to 4-day onset of boils. Patient states it originally started on the middle of his patella on the left side. Yesterday he attempted to pop it with a sewing needle and a large hole formed in the top of the patella area. They flushed it out with alcohol and peroxide and has not gotten any better. Patient states then he woke up today with 2 little ones 1 at the proximal end of the lower leg and 1 to the lateral aspect of the knee. Both of them are similar in process but currently are only tender to palpate. Patient also presents with a temp of 100.4 orally today. Heart rate is 96 and blood pressure is 129/75. Patient denies any past history of having boils. He works laying cement. Denies any known trauma to the knees has not been on his knees in order to have a rock or stone cause a problem. Physical examination shows patient to be a well-nourished well-developed 34-year-old male no apparent distress but does appear somewhat uncomfortable. Cardiac: Regular rate and rhythm with no murmurs. Lungs: Bilateral breath sounds of breath sounds increased clear to auscultation. Lower extremity: Left knee as stated has approximately a 1 cm round hole mid center of the patella that appears to be where the abscess had previously been. There is tenderness to palpation on the generalized area. There is no discharge occurring at current time. There is no induration and no erythema surrounding it at this time. Inferiorly to that at the proximal end of the leg patient also has a couple small areas that are superficial in nature moderate erythema slight cellulitis around the area as well as to the lateral side of the left knee. I have greeted and performed a rapid initial assessment of this patient. A comprehensive ED assessment and evaluation of the patient, analysis of test results and completion of the medical decision making process will be conducted by additional ED providers. Dictation of this chart was performed using voice recognition software; therefore, there may be some unintended grammatical errors. TRAVEL OUTSIDE OF THE [place] IN LAST 30 DAYS: No - Related Data Allergies/Adverse Reactions: peaches Allergy (Uncoded 06/13/20 18:38) Past Medical History - Social History Chew tobacco use (# tins/day): No Frequency of alcohol use: Social Drug Abuse: None Renal/ Medical History: Denies: Hx Peritoneal Dialysis - Immunizations Hx Diphtheria, Pertussis, Tetanus Vaccination: No Physical Exam - Vital signs Vitals: Temp Pulse Resp BP Pulse Ox 100.3 F 96 18 129/75 H 98 06/13/20 18:04 06/13/20 18:04 06/13/20 18:04 06/13/20 18:04 06/13/20 18:04 Course - Vital Signs Vital signs: Temp Pulse Resp BP Pulse Ox 100.3 F 96 18 129/75 H 98 06/13/20 18:38 06/13/20 18:04 06/13/20 18:04 06/13/20 18:04 06/13/20 18:04
[2020-06-13 19:17] LABS: ABSOLUTE EOSINOPHILS # (AUTO) 0.1 10^3/uL (0.0-0.6); ABSOLUTE LYMPHOCYTES (AUTO) 1.2 10^3/uL (0.5-4.7); ABSOLUTE MONOCYTES (AUTO) 0.8 10^3/uL (0.1-1.4); ABSOLUTE NEUT (AUTO) 5.8 10^3/uL (1.7-8.2); BASOPHILS % (AUTO) 0.4 % (0-2); EOSINOPHILS % (AUTO) 0.7 % (0-6); HEMATOCRIT 42.8 % (37.9-51.0); HEMOGLOBIN 14.9 g/dL (13.5-17.0); LYMPHOCYTES % (AUTO) 15.7 % (13-45); MEAN CORPUSCULAR HEMOGLOBIN 30.9 pg (27.0-33.4); MEAN CORPUSCULAR HGB CONC 34.7 g/dL (32.0-36.0); MEAN CORPUSCULAR VOLUME 89 fl (80-97); MONOCYTES % (AUTO) 9.7 % (3-13); PLATELET COUNT 223 10^3/uL (150-450); RED CELL DISTRIBUTION WIDTH 13.5 % (11.5-14.0); SEGMENTED NEUTROPHILS % (AUTO) 73.5 % (42-78); TOTAL CELLS COUNTED % (AUTO) 100 %; WHITE BLOOD COUNT 7.9 10^3/uL (4.0-10.5)
--- NOTE | 2020-06-13 19:30 | RADIOLOGY REPORT (SQ) ---
EXAM DESCRIPTION: KNEE LEFT 4 VIEW IMAGES COMPLETED DATE/TIME: 06/13/2020 7:18 pm REASON FOR STUDY: Rule out osteo- COMPARISON: None. NUMBER OF VIEWS: Four views. TECHNIQUE: AP, lateral, and both oblique radiographic images acquired of the left knee. LIMITATIONS: None. FINDINGS: MINERALIZATION: Normal. BONES: No acute fracture or dislocation. No worrisome bone lesions. JOINT: No effusion. SOFT TISSUES: No soft tissue swelling. No radio-opaque foreign body. OTHER: No other significant finding. IMPRESSION: NEGATIVE STUDY OF THE LEFT KNEE. NO RADIOGRAPHIC EVIDENCE OF ACUTE INJURY. TECHNICAL DOCUMENTATION: JOB ID: [id number] 2010 [employer]- All Rights Reserved Reading location - IP/workstation name: [email or web address]
[2020-06-13 19:42] LABS: ALBUMIN 5.1 g/dL (3.5-5.0); ALKALINE PHOSPHATASE 56 U/L (38-126); ANION GAP 9 (5-19); ASPARTATE AMINO TRANSFERASE 27 U/L (17-59); BILIRUBIN,TOTAL 0.5 mg/dL (0.2-1.3); BLOOD UREA NITROGEN 25 mg/dL (7-20); CALCIUM 9.7 mg/dL (8.4-10.2); CARBON DIOXIDE 27 mmol/L (22-30); CHLORIDE 100 mmol/L (98-107); GLUCOSE 108 mg/dL (75-110); POTASSIUM 4.2 mmol/L (3.6-5.0); TOTAL PROTEIN 8.6 g/dL (6.3-8.2)
== END 2020-06-13 21:19 | disposition left against medical advice (07) ==
LOC: ER 17:59
DX: L02.426 Furuncle of left lower limb (principal); Z91.018 Allergy to other foods; Z53.20 Procedure and treatment not carried out because of patient's decision for unspecified reasons
CPT/HCPCS: 36415; 80053; 83605; 85025; 87040; 99281

== ENCOUNTER 2020-06-14 11:46 | Emergency (ER) | payer SELFPAY ==
--- NOTE | 2020-06-14 11:57 | ER Document Report ---
ED Medical Screen (RME) - General Chief Complaint: Abscess Stated Complaint: ABSCESS/LEFT LEG Time Seen by Provider: 06/14/20 11:54 Mode of Arrival: Wheelchair Information source: Patient Notes: 34-year-old male presents to ED for abscess to the left knee. He states he was here last night had blood work blood cultures and x-ray completed but left before the results due to the number of people waiting. He is alert oriented respirations regular nonlabored speaking in full sentences. He does continue to have pain in his left knee. He states he was not seen to get an I&D of his knee. We will repeat the blood and x-ray to the knee. I have greeted and performed a rapid initial assessment of this patient. A comprehensive ED assessment and evaluation of the patient, analysis of test results and completion of medical decision making process will be conducted by an additional ED providers. TRAVEL OUTSIDE OF THE [place] IN LAST 30 DAYS: No - Related Data Allergies/Adverse Reactions: peaches Allergy (Uncoded 06/14/20 11:55) Past Medical History Renal/ Medical History: Denies: Hx Peritoneal Dialysis - Immunizations Hx Diphtheria, Pertussis, Tetanus Vaccination: No
[2020-06-14] MEDS ORDERED: ONDANSETRON HCL INJ/PF 4 MG/2 ML SDV IV ONE (12:36)
[2020-06-14] MEDS ORDERED: MORPHINE SULFATE 10 MG/ML INJ IV ONE (12:36)
[2020-06-14] MEDS ORDERED: KETOROLAC TROMETHAMINE INJ/PF 30 MG/1 ML SDV IV ONE (12:36)
[2020-06-14] MEDS ORDERED: CLINDAMYCIN 900 MG/D5W RTU 900 MG/50 ML RTUPB IV ONE (12:36)
[2020-06-14] MEDS ORDERED: NORMAL SALINE 1000 ML 1,000 ML IV ONE (12:37)
[2020-06-14 12:42] LABS: ABSOLUTE BASOPHILS # (AUTO) 0.1 10^3/uL (0.0-0.2); ABSOLUTE EOSINOPHILS # (AUTO) 0.1 10^3/uL (0.0-0.6); ABSOLUTE LYMPHOCYTES (AUTO) 1.3 10^3/uL (0.5-4.7); ABSOLUTE MONOCYTES (AUTO) 0.8 10^3/uL (0.1-1.4); ABSOLUTE NEUT (AUTO) 3.3 10^3/uL (1.7-8.2); EOSINOPHILS % (AUTO) 1.3 % (0-6); HEMATOCRIT 43.8 % (37.9-51.0); HEMOGLOBIN 15.2 g/dL (13.5-17.0); MEAN CORPUSCULAR HEMOGLOBIN 30.8 pg (27.0-33.4); MEAN CORPUSCULAR HGB CONC 34.6 g/dL (32.0-36.0); MEAN CORPUSCULAR VOLUME 89 fl (80-97); PLATELET COUNT 228 10^3/uL (150-450); RED BLOOD COUNT 4.92 10^6/uL (4.35-5.55); RED CELL DISTRIBUTION WIDTH 13.4 % (11.5-14.0); SEGMENTED NEUTROPHILS % (AUTO) 59.7 % (42-78); TOTAL CELLS COUNTED % (AUTO) 100 %; WHITE BLOOD COUNT 5.5 10^3/uL (4.0-10.5)
[2020-06-14 13:09] LABS: ALBUMIN 4.8 g/dL (3.5-5.0); ALKALINE PHOSPHATASE 65 U/L (38-126); ANION GAP 7 (5-19); ASPARTATE AMINO TRANSFERASE 25 U/L (17-59); BILIRUBIN,TOTAL 0.8 mg/dL (0.2-1.3); BLOOD UREA NITROGEN 19 mg/dL (7-20); CALCIUM 9.6 mg/dL (8.4-10.2); CARBON DIOXIDE 28 mmol/L (22-30); CHLORIDE 99 mmol/L (98-107); GLUCOSE 85 mg/dL (75-110); POTASSIUM 4.5 mmol/L (3.6-5.0); TOTAL PROTEIN 8.4 g/dL (6.3-8.2)
--- NOTE | 2020-06-14 13:13 | ER Document Report ---
ED General - General Chief Complaint: Abscess Stated Complaint: ABSCESS/LEFT LEG Time Seen by Provider: 06/14/20 11:54 Mode of Arrival: Wheelchair Notes: Patient is a 34-year-old -[place] male with no significant past medical history presents to the emergency department the chief complaint of suspected abscess formation to the left leg began a few days ago. He states initially started as a spot on the anterior patella approximately. He states that area swelled up to ahead, he poked it superficially with a needle and drained purulence. He states that area improved on its own, he peeled away skin t he area appears to have healed. He states distal to the tibial plateau a second area began to form a couple days ago. States the area is red swollen and painful. Worse with any movement, weightbearing or touch. Denies any fever, nausea or vomiting, diarrhea, chills or night sweats. TRAVEL OUTSIDE OF THE [place] IN LAST 30 DAYS: No - Related Data Allergies/Adverse Reactions: peaches Allergy (Uncoded 06/14/20 11:55) Past Medical History - General Information source: Patient - Social History Smoking Status: Current Every Day Smoker Chew tobacco use (# tins/day): No Frequency of alcohol use: Social Drug Abuse: None Family History: Reviewed & Not Pertinent Patient has homicidal ideation: No Renal/ Medical History: Denies: Hx Peritoneal Dialysis - Immunizations Hx Diphtheria, Pertussis, Tetanus Vaccination: No Review of Systems - Review of Systems Constitutional: denies: Fever EENT: denies: Throat pain Cardiovascular: denies: Chest pain Respiratory: denies: Short of breath Gastrointestinal: denies: Abdominal pain Genitourinary: denies: Pain Male Genitourinary: No symptoms reported Musculoskeletal: Leg swelling Skin: Change in color, Lesions Hematologic/Lymphatic: denies: Easy bleeding Neurological/Psychological: denies: Headaches Physical Exam - General General appearance: Appears well, Alert In distress: None - Respiratory Respiratory status: No respiratory distress Chest status: Nontender Breath sounds: Normal Chest palpation: Normal - Cardiovascular Rhythm: Regular Heart sounds: Normal auscultation - Extremities Knee: Other - Full extension of the left knee passively, flexion to appr oximately 100 degrees. Limited by pain at the site of infection. Distal to the tibial plateau on the left anteriorly there is a small area of induration with central pointing and drainage of a bloody purulence. Minimal localized surrounding erythema. No proximal streaking. No joint effusion or obvious joint involvement - Neurological Neuro grossly intact: Yes Cognition: Normal Orientation: AAOx4 Miah Coma Scale Eye Opening: Spontaneous [place] Coma Scale Verbal: Oriented Miah Coma Scale Motor: Obeys Commands [place]iah Coma Scale Total: 15 Speech: Normal - Psychological Associated symptoms: Normal affect, Normal mood - Skin Skin Color: Other - Area of infection as described above Course - Re-evaluation Re-evalutation: 06/14/20 14:22 Lab work largely unremarkable. Patient afebrile without systemic symptoms. We treated for a superficial cellulitis and abscess. Doubt any joint or bony involvement. Given IV clindamycin here. Will be sent home on Bactrim and short course of Fritch. Counseled him regarding sitz baths and supportive care measures. Discussed with him the importance of outpatient follow-up and advised to return here or any ER immediately with any new, persistent or worsening symptoms. He verbalized understood and agreed. 06/14/20 14:25 Tetanus updated today. - Laboratory Result Diagrams: 06/14/20 12:12 06/14/20 12:12 Laboratory results interpreted by me: 06/14/20 06/14/20 12:12 12:12 Roberts % (Auto) 14.0 H Sodium 134.4 L Total Protein 8.4 H Discharge - Discharge Clinical Impression: Cellulitis and abscess of leg Condition: Stable Disposition: HOME, SELF-CARE Instructions: MRSA Cellulitis ([facility]), Trimethoprim-Sulfa ([facility]), Oral Narcotic Medication ([facility]) Additional Instructions: Your tetanus was updated today. Please follow-up in 2 to 3 days with your regular doctor for wound recheck and reevaluation. Please return here any ER immediately with any new, persistent or worsening symptoms. Prescriptions: Sulfamethoxazole/Trimethoprim [Bactrim Ds Tablet] 1 each PO BID #20 tablet Hydrocodone/Acetaminophen [Fritch 5-325 Tablet] 1 each PO Q6 PRN #10 tablet PRN Reason:
[2020-06-14] MEDS ORDERED: DIPH/PERTUSS(ACELL)/TETANUS VAC/PF 0.5 ML SYR (>=10YO) IM ONE (14:24)
[2020-06-14 14:44] VITALS: BP 120/60
== END 2020-06-14 14:43 | disposition home or self-care (01) ==
LOC: ER 11:46
DX: L02.416 Cutaneous abscess of left lower limb (principal); L03.116 Cellulitis of left lower limb; F17.200 Nicotine dependence, unspecified, uncomplicated
CPT/HCPCS: 99283; 90471; 96375; 96365; 36415; 87040; 85025; 80053; 90715; J3490; J1885; J2270; J2405; J7030

== ENCOUNTER 2020-09-20 21:09 | Emergency (ER) | payer MEDICAID ==
--- NOTE | 2020-09-20 21:49 | ER Document Report ---
ED Medical Screen (RME) - General Chief Complaint: Flank Pain Stated Complaint: BACK PAIN Time Seen by Provider: 09/20/20 21:46 Mode of Arrival: Medic Information source: Patient Notes: 34-year-old male presented to ED for complaint of pain to the left flank area. Started this morning. 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 He does have tenderness to palpation to the left flank and the left upper abdomen. He states that his mother has factor V disorder and they do not know if he does to. He states that his mother states that she had a clot in her lungs about his age. We will get blood urine and the CAT scan for now and he will be examined by another provider. He does not smoke cigarettes but he does use a vapor. States he drinks beer weekly denies any use of illicit drugs. I have greeted and performed a rapid initial assessment of this patient. A comprehensive ED assessment and evaluation of the patient, analysis of test results and completion of medical decision making process will be conducted by an additional ED providers. TRAVEL OUTSIDE OF THE [place] IN LAST 30 DAYS: No - Related Data Allergies/Adverse Reactions: peaches Allergy (Uncoded 06/14/20 11:55) Past Medical History Renal/ Medical History: Denies: Hx Peritoneal Dialysis - Immunizations Hx Diphtheria, Pertussis, Tetanus Vaccination: No Physical Exam - Vital signs Vitals: Temp Pulse Resp BP Pulse Ox 98.4 F 78 24 H 137/74 H 96 09/20/20 21:44 09/20/20 21:44 09/20/20 21:44 09/20/20 21:44 09/20/20 21:44 Course - Vital Signs Vital signs: Temp Pulse Resp BP Pulse Ox 98.4 F 78 24 H 137/74 H 96 09/20/20 21:44 09/20/20 21:44 09/20/20 21:44 09/20/20 21:44 09/20/20 21:44
[2020-09-20 22:52] LABS: APPEARANCE,URINE CLEAR; BILIRUBIN,URINE NEGATIVE (NEGATIVE); COLOR,URINE YELLOW; GLUCOSE, URINE NEGATIVE (NEGATIVE); KETONES,URINE NEGATIVE (NEGATIVE); LEUKOCYTE ESTERASE,URINE NEGATIVE (NEGATIVE); NITRITE,URINE NEGATIVE (NEGATIVE); PROTEIN,URINE NEGATIVE (NEGATIVE); URINE SPECIFIC GRAVITY 1.014; UROBILINOGEN,URINE NEGATIVE mg/dL (<2.0)
[2020-09-20 22:56] LABS: ABSOLUTE EOSINOPHILS # (AUTO) 0.1 10^3/uL (0.0-0.6); ABSOLUTE LYMPHOCYTES (AUTO) 0.9 10^3/uL (0.5-4.7); ABSOLUTE MONOCYTES (AUTO) 0.7 10^3/uL (0.1-1.4); ABSOLUTE NEUT (AUTO) 5.5 10^3/uL (1.7-8.2); BASOPHILS % (AUTO) 0.4 % (0-2); EOSINOPHILS % (AUTO) 0.7 % (0-6); HEMATOCRIT 39.6 % (37.9-51.0); HEMOGLOBIN 13.9 g/dL (13.5-17.0); INTERNATIONAL RATION (INR) 1.08; LYMPHOCYTES % (AUTO) 12.2 % (13-45); MEAN CORPUSCULAR HEMOGLOBIN 31.2 pg (27.0-33.4); MEAN CORPUSCULAR VOLUME 89 fl (80-97); MONOCYTES % (AUTO) 9.3 % (3-13); PLATELET COUNT 158 10^3/uL (150-450); PROTHROMBIN TIME 14.2 SEC (11.4-15.4); RED BLOOD COUNT 4.45 10^6/uL (4.35-5.55); RED CELL DISTRIBUTION WIDTH 13.8 % (11.5-14.0); SEGMENTED NEUTROPHILS % (AUTO) 77.4 % (42-78); TOTAL CELLS COUNTED % (AUTO) 100 %; WHITE BLOOD COUNT 7.1 10^3/uL (4.0-10.5)
[2020-09-20 22:57] LABS: PARTIAL THROMBOPLASTIN TIME 27.9 SEC (23.5-35.8)
[2020-09-20 23:05] LABS: ALBUMIN 4.7 g/dL (3.5-5.0); ALKALINE PHOSPHATASE 55 U/L (38-126); ANION GAP 12 (5-19); ASPARTATE AMINO TRANSFERASE 28 U/L (17-59); BILIRUBIN,DIRECT 0.1 mg/dL (0.0-0.4); BILIRUBIN,TOTAL 0.6 mg/dL (0.2-1.3); BLOOD UREA NITROGEN 22 mg/dL (7-20); CALCIUM 9.3 mg/dL (8.4-10.2); CARBON DIOXIDE 24 mmol/L (22-30); CHLORIDE 100 mmol/L (98-107); GLUCOSE 134 mg/dL (75-110); POTASSIUM 3.7 mmol/L (3.6-5.0); TOTAL PROTEIN 7.9 g/dL (6.3-8.2)
--- NOTE | 2020-09-20 23:15 | RADIOLOGY REPORT (SQ) ---
EXAM DESCRIPTION: CT ABDOMEN PELVIS WITHOUT IV CONTRAST COMPLETED DATE/TME: 09/20/2020 21:54 CLINICAL HISTORY: Left flank pain COMPARISON: 09/29/2017 TECHNIQUE: CT of the abdomen and pelvis without IV contrast. Evaluation of the solid organs and vasculature is suboptimal due to lack of IV contrast. FINDINGS: Lung Bases: Bibasilar peripheral groundglass opacities Bones: No destructive bone lesions identified. Abdomen: Liver: The liver has normal size and density. Gallbladder: No calcified gallstones. Spleen, Pancreas, and Adrenal Glands: The spleen, pancreas, and adrenal glands are unremarkable. Kidneys: The kidneys have normal size without evidence of hydronephrosis. No obstructing ureteral calculi. Vasculature: The aorta and IVC have normal caliber and position. Stomach: The stomach and duodenum have normal course. Other: No free intraperitoneal air. No free fluid or lymphadenopathy. Pelvis: Bladder: Urinary bladder is decompressed. Bowel: No dilated loops of large or small bowel. Appendix: Normal appendix. Pelvis: Prostate is not enlarged. IMPRESSION: 1. No acute inflammatory or obstructive process identified in the abdomen/pelvis. 2. Peripheral bibasilar groundglass opacity. Commonly reported imaging features of viral pneumonia are present. Other processes such as influenza pneumonia and organizing pneumonia, as can be seen with drug toxicity and connective tissue disease, can cause a similar imaging pattern. [PneTyp] Reference: https://pubs.[facility]na.org/doi/full/10.1148/ryct.4675071672 This exam was performed according to our departmental dose-optimization program, which includes automated exposure control, adjustment of the mA and/or kV according to patient size and/or use of iterative reconstruction technique.
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
[2020-09-21] MEDS ORDERED: HYDROCODONE/ACETAMINOPHEN 5-325 MG TABLET PO ONE (02:20)
--- NOTE | 2020-09-21 04:19 | RADIOLOGY REPORT (SQ) ---
EXAM DESCRIPTION: CT CHEST ANGIOGRAPHY WITHOUT THEN WITH IV CONTRAST COMPLETED DATE/TME: 09/21/2020 02:37 CLINICAL HISTORY: Pleuritic chest pain, positive D-dimer COMPARISON: None Available. TECHNIQUE: CTA of the chest obtained following the uncomplicated intravenous administration of . 3-D/MIP reformatted images of the chest available for evaluation. FINDINGS: Chest: Pulmonary arteries: Contrast bolus is adequate.No filling defects identified in the pulmonary arteries to suggest pulmonary embolus. Thyroid:No abnormalities of the visualized thyroid. Great Vessels:Great vessels have normal anatomic configuration. Thoracic Aorta:No abnormalities of the thoracic aorta identified. Heart:No cardiomegaly, significant pericardial effusion, or coronary artery atherosclerosis Lymph Nodes:No enlarged mediastinal lymph nodes identified. Esophagus:No abnormalities of the esophagus identified. Other:No additional findings. Lungs: Posterior bilateral basilar groundglass and airspace opacities. Pleura:No pleural effusion or pneumothorax. Trachea/Airways:No abnormalities of the visualized trachea or airways. Bones:No destructive osseous lesions. Upper Abdomen:Limited images of the upper abdomen demonstrate no definite abnormalities of visualized portions of the liver, gallbladder, pancreas, spleen, adrenal glands, or kidneys. IMPRESSION: 1. No pulmonary embolus. 2. Posterior bilateral basilar groundglass and airspace opacities. Commonly reported imaging features of viral pneumonia are present. Other processes such as influenza pneumonia and organizing pneumonia, as can be seen with drug toxicity and connective tissue disease, can cause a similar imaging pattern. [PneTyp] Reference: https://pubs.[facility]na.org/doi/full/10.1148/ryct.2033364028 This exam was performed according to our departmental dose-optimization program, which includes automated exposure control, adjustment of the mA and/or kV according to patient size and/or use of iterative reconstruction technique.
[2020-09-21] MEDS ORDERED: AZITHROMYCIN 250 MG TABLET PO ONE (04:59)
[2020-09-21] MEDS ORDERED: DEXAMETHASONE SOD PHOS INJ 10 MG/1 ML VIAL IV ONE (04:59)
[2020-09-21 05:57] LABS: A TYPE INFLUENZA AG NEGATIVE (NEGATIVE); B INFLUENZA AG NEGATIVE (NEGATIVE)
[2020-09-21 06:17] VITALS: BP 113/83
== END 2020-09-21 06:27 | disposition home or self-care (01) ==
LOC: ER 21:09
DX: J18.9 Pneumonia, unspecified organism (principal); R09.1 Pleurisy; R10.9 Unspecified abdominal pain; F17.290 Nicotine dependence, other tobacco product, uncomplicated; Z91.018 Allergy to other foods; Z20.828 Contact with and (suspected) exposure to other viral communicable diseases
CPT/HCPCS: 99285; 96374; 36415; 87086; 85025; 85610; 85730; 87635; 80053; 81001; 85379; 87804; 71275; 74176; Q0144; J1100; C9803